=== PATIENT | female | born 1990 | race Caucasian/White ===

== ENCOUNTER 2017-06-30 19:22 | Emergency (ER) | payer BC ==
--- NOTE | 2017-06-30 20:08 | EDM.PDOC ---
ED HPI GENERAL MEDICAL PROBLEM - General Chief Complaint: Drug or Alcohol Abuse Stated Complaint: DRUG WITHDRAWAL Time Seen by Provider: 06/30/17 19:53 Source of Information: Reports: Patient History Limitations: Reports: No Limitations - History of Present Illness INITIAL COMMENTS - FREE TEXT/NARRATIVE: HISTORY AND PHYSICAL: History of present illness: Patient is a 26-year-old female who presents to the emergency room today with complaints of heroin use. 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 States recently she quit heroin and had been clean for 1 week, receiving treatment through outpatient services at [facility]. Today she had access to heroin and smoked in her vehicle, approximately one hour prior to arrival. She states she told her family members to encourage her to come and be evaluated. She has no systemic complaints at this time. She is tearful. Family is at bedside with her. Review of systems: As per history of present illness and below otherwise all systems reviewed and negative. Past medical history: As per history of present illness and as reviewed below otherwise noncontributory. Surgical history: As per history of present illness and as reviewed below otherwise noncontributory. Social history: No reported history of drug or alcohol abuse. Family history: As per history of present illness and as reviewed below otherwise noncontributory. Physical exam: General: Well-developed and well-nourished 26-year-old female. Alert and oriented. Nontoxic appearing and in no acute distress. HEENT: Atraumatic, normocephalic, pupils reactive, negative for conjunctival pallor or scleral icterus, mucous membranes moist, throat clear, neck supple, nontender, trachea midline. Lungs: Clear to auscultation, breath sounds equal bilaterally, chest nontender. Heart: S1S2, regular rate and rhythm Abdomen: Soft, nondistended, nontender. Negative for masses or hepatosplenomegaly. Negative for costovertebral tenderness. Pelvis: Stable nontender. Genitourinary: Deferred. Rectal: Deferred. Extremities: Atraumatic, moves all extremities per self without difficulty or deficits. She is negative for cords or calf pain. Neurovascular unremarkable. Skin: Multiple healed circular scars, faint, noted to bilateral forearms and torso (non-raised). Otherwise skin intact, warm, dry. Neuro: Awake, alert, oriented. Cranial nerves II through XII unremarkable. Cerebellum unremarkable. Motor and sensory unremarkable throughout. Exam nonfocal. Patient is alert and oriented. She states she is here because her family encouraged her to be evaluated to make sure she is "okay". Did discuss the sources available to the emergency room, such as labs and IV fluids. Patient says she has not used IV drug access and "over a month" and is declining any venipuncture or IV fluids at this time as she believes it will trigger her. Vital signs are stable. During her discussion the patient says she would like to "just go home". She does have an appointment tomorrow morning at [address] Sultana, at [facility]. Family is with her and is agreeable to taking her home and they offer no further questions or concerns at this time. Diagnostics: [] Therapeutics: [] Impression: Drug abuse Plan: 1. Abstain from any/all drug and alcohol. Please keep your appointment with Dr. Sultana for tomorrow. 2. If any symptoms should develop please return to the emergency room. Return to the ED as needed and as discussed. Definitive disposition and diagnosis as appropriate pending reevaluation and review of above. Onset: Today Duration: Hour(s): - Related Data Allergies Allergy/AdvReac Type Severity Reaction Status Date / Time No Known Allergies Allergy Verified 06/30/17 19:49 Home Meds: Home Meds ClonazePAM [KlonoPIN] 1 mg PO TID PRN 06/30/17 [History] Sertraline [Zoloft] 50 mg PO DAILY 06/30/17 [History] ED ROS GENERAL - Review of Systems Review Of Systems: ROS reveals no pertinent complaints other than HPI. ED EXAM, GENERAL - Physical Exam Exam: See Below (See dictation) Course - Vital Signs Last Recorded V/S: Last Vital Signs Temp 96.9 F 06/30/17 19:40 Pulse 99 06/30/17 19:40 Resp 19 06/30/17 19:40 BP 144/92 H 06/30/17 19:40 Pulse Ox 97 06/30/17 19:40 Departure - Departure Time of Disposition: 20:09 Disposition: Home, Self-Care 01 Clinical Impression: Drug abuse - Discharge Information Instructions: Substance Use Disorder Referrals: PCP,None [Primary Care Provider] - Additional Instructions: My general discharge The following information is given to patients seen in the emergency department who are being discharged to home. This information is to outline your options for follow-up care. We provide all patients seen in our emergency department with a follow-up referral. The need for follow-up, as well as the timing and circumstances, are variable depending upon the specifics of your emergency department visit. If you don't have a primary care physician on staff, we will provide you with a referral. We always advise you to contact your personal physician following an emergency department visit to inform them of the circumstance of the visit and for follow-up with them and/or the need for any referrals to a consulting specialist. The emergency department will also refer you to a specialist when appropriate. This referral assures that you have the opportunity for follow-up care with a specialist. All of these measure are taken in an effort to provide you with optimal care, which includes your follow-up. Under all circumstances we always encourage you to contact your private physician who remains a resource for coordinating your care. When calling for follow-up care, please make the office aware that this follow-up is from your recent emergency room visit. If for any reason you are refused follow-up, please contact the [facility] Emergency Department at and asked to speak to the emergency department charge nurse. [facility] [address] [place] [id number] 1. Abstain from any/all drug and alcohol. Please keep your appointment with Dr. Sultana for tomorrow. 2. If any symptoms should develop please return to the emergency room. Return to the ED as needed and as discussed.
== END 2017-06-30 20:22 | disposition home or self-care (01) ==
LOC: MW.ED 19:22
DX: F11.10 Opioid abuse, uncomplicated (principal); Z79.899 Other long term (current) drug therapy
CPT/HCPCS: 99282; 99283